=== PATIENT | male | born 1975 | race Caucasian/White ===

== ENCOUNTER → 2017-08-13 | Day surgery (SDC) | payer OTHER ==
--- NOTE | 2017-08-12 15:12 | PDHPUP ---
History & Physical Update H&P update statement: This history and physical update is based on an assessment of the patient which was completed after admission or registration (within 24 hours), but prior to the surgery/procedure. H&P update: H&P reviewed & patient examined, no change in patient's condition since H&P completed
[~2017-08-13] MED LIST: ACETAMINOPHEN 500 MG TAB PO PRN; DEXAMETHASONE 10 MG/ML VIAL IVP ONE; DEXAMETHASONE 4 MG/ML VIAL ONE; LABETALOL HCL 5 MG/ML 20 ML MDV IVP PRN; LIDOCAINE 2% 5 ML SDV ONE; LR 1,000 ML IV ONE; LR 500 ML IV PRN; METHYLENE BLUE 0.5% 50 MG/10 ML AMP ONE; MIDAZOLAM 2 MG/2 ML VIAL IVP ONE; NALOXONE HCL 0.4 MG/ML INJ IVP PRN; ONDANSETRON 4 MG/2 ML VIAL IVP PRN; ONDANSETRON 4 MG/2 ML VIAL ONE; OXYCODONE/APAP 5/325 TAB PO PRN; OXYMETAZOLINE 30 ML NASAL SPRAY ONE; PROMETHAZINE HCL 25 MG/ML INJ IVP PRN; PROPOFOL 200 MG/20 ML VIAL ONE; ROCURONIUM 50 MG/5 ML VIAL ONE; SUGAMMADEX SODIUM 200 MG/2 ML VIAL IVP ONE; TRIAMCINOLONE ACETONIDE 40 MG/ML VIAL ONE; fentaNYL 100 MCG/2 ML INJ IVP PRN; fentaNYL 100 MCG/2 ML INJ ONE
--- NOTE | 2017-08-13 09:40 | PDANEPAE ---
ANE Past Medical History - Cardiovascular History Hx Hypertension: Yes Hx Arrhythmias: No Hx Chest Pain: No Hx Coronary Artery / Peripheral Vascular Disease: No Hx CHF / Valvular Disease: No Hx Palpitations: No Cardiovascular History Comment: pcp monitors bp meds - Pulmonary History Hx COPD: No Hx Asthma/Reactive Airway Disease: No Hx Recent Upper Respiratory Infection: No Hx Oxygen in Use at Home: No Hx Sleep Apnea: No Sleep Apnea Screening Result - Last Documented: Negative - Neurologic History Hx Cerebrovascular Accident: No Hx Seizures: No Hx Dementia: No Neurologic History Comment: taking one medication for cognition - Endocrine History Hx Diabetes: No - Renal History Hx Renal Disorders: No - Liver History Hx Hepatic Disorders: No - Neurological & Psychiatric Hx Hx Neurological and Psychiatric Disorders: Yes Neurological / Psychiatric History Comment: depression - Cancer History Hx Cancer: No - Congenital Disorder History Hx Congenital Disorders: No - GI History Hx Gastrointestinal Disorders: No - Other Health History Other Health History: wears glasses. wears hearing aides to help decrease sound and stimulus - Chronic Pain History Chronic Pain: No - Surgical History Prior Surgeries: left ankle surgery 2011. foot surgery 1997- left d/t broken toes ANE Review of Systems Review of Systems: - Exercise capacity METS (RN): 4 METS ANE Patient History - Allergies Allergies/Adverse Reactions: Penicillins Allergy (Verified 07/23/17 15:34) Swelling/neck,face,throat tramadol Allergy (Verified 07/23/17 15:34) Swelling/neck,face,throat KIWI Allergy (Uncoded 07/23/17 15:34) Swelling/neck,face,throat - Home Medications Home Medications: Ambien 5MG (*) 07/23/17 [Last Taken 08/12/17] Metoprolol Tartrate 07/23/17 [Last Taken 08/12/17] Razadyne 07/23/17 [Last Taken 08/12/17] Trintellix 07/23/17 [Last Taken 08/12/17] Wellbutrin Xl 07/23/17 [Last Taken 08/12/17] - NPO status NPO Since - Liquids (Date): 08/12/17 NPO Since - Liquids (Time): 22:30 NPO Since - Solids (Date): 08/12/17 NPO Since - Solids (Time): 22:30 - Anes Hx Anes Hx: no prior problems - Smoking Hx Smoking Status: Former smoker - Family Anes Hx Family Hx Anesthesia Complications: none ANE Labs/Vital Signs - Vital Signs Blood Pressure: 123/71 Heart Rate: 60 Respiratory Rate: 12 O2 Sat (%): 93 Height: 190.5 cm Weight: 92.986 kg ANE Physical Exam - Airway Neck exam: FROM Mallampati Score: Class 3 Mouth exam: normal dental/mouth exam - Pulmonary Pulmonary: no respiratory distress, no rales or rhonchi, clear to auscultation - Cardiovascular Cardiovascular: regular rate and rhythym, no murmur, rub, or gallop - ASA Status ASA Status: II ANE Anesthesia Plan Anesthesia Plan: general endotracheal anesthesia
--- NOTE | 2017-08-13 11:13 | POSTOPPROG ---
Post Op Note Date of Operation: 08/13/17 Surgeon: Luz Marina Hope Anesthesiologist: Michael Anesthesia: GET(General Endotracheal) Pre-op Diagnosis: left vocal cord lesion Post-op Diagnosis: same Procedure: microlaryngoscopy with biopsy, steroid injection and laser Inf/Abcess present in the surg proc area at time of surgery?: No Depth: Superfical (Skin SQ) EBL: Minimal Total fluids administered: 500 Complications: none Specimen(s): left vocal cord lesion
--- NOTE | 2017-08-13 11:25 | POSTANESTH ---
Post Anesthetic Evaluation Cardiovascular Status: Normal, Stable, Similar to Pre-Op Cond Respiratory Status: Normal, Stable, Similar to Pre-op Cond. Level of Consciousness/Mental Status: Can Participate in Eval, Moderately Sleepy Pain Control: Adequate, Prn Tx Ordered Nausea/Vomiting Control: Adequate, Prn Tx Ordered Complications Possibly Related to Anesthesia: None Noted
[2017-08-13 11:57] VITALS: O2SAT 96
[2017-08-13 12:02] VITALS: BP 128/81; PULSE 53; RESP 16
[2017-08-13 12:06] VITALS: TEMP 97.5
== END | disposition home or self-care (01) ==
LOC: FSGY 08:45
PROVIDERS: ATTEND Otolaryngology
PROC: 0CBV8ZZ Excision of Left Vocal Cord, Via Natural or Artificial Opening Endoscopic (ICD-10-PCS; principal; 2017-08-13 10:15)
PROC: 3E0D7GC Introduction of Other Therapeutic Substance into Mouth and Pharynx, Via Natural or Artificial Opening (ICD-10-PCS; principal; 2017-08-13 10:15)
DX: D14.1 Benign neoplasm of larynx (principal)
CPT/HCPCS: J1100; J2250; J2405; J2704; J3010; J3301; Q9968